=== PATIENT | male | born 1980 | race Caucasian/White ===

== ENCOUNTER 2018-07-07 12:25 | Day surgery (SDC) | payer MEDICAID ==
[~2018-07-07] VITALS: Ht 175.3 cm; Wt 111.4 kg
--- NOTE | ~2018-07-07 | OP ---
PATIENT NAME: ANGELIQUE WEINSTEIN MEDICAL RECORD: [id number] :81 LOCATION:[facility] ADMISSION DATE: SURGEON: STANFORD ZHANG MD DATE OF OPERATION: 07/07/2018 PROCEDURE: Colonoscopy with polypectomy. REFERRING PHYSICIAN: Dr. Moody Sierra. INDICATIONS: Mr. Weinstein is a delightful 38-year-old gentleman with a history of developmental cognitive delay, cerebral palsy, seizure disorder and bipolar disorder, who has had symptoms of constipation for several years, but has been worse over the past 4-5 months. His appetite is decreased and he has lost 9 pounds over the past 3 months. He has had no melena or hematochezia. He presents for an outpatient colonoscopy. PREMEDICATIONS: Total IV anesthesia (propofol 320 mg. Indications are cerebral palsy, seizure disorder, bipolar disorder). INSTRUMENT: Olympus video colonoscope pediatric. PROCEDURE AND FINDINGS: After receiving informed consent, Mr. Weinstein was placed in left lateral decubitus position, sedated as per anesthesia. After achieving adequate level of sedation, digital rectal exam was performed that showed no external hemorrhoidal tags, fissures or fistulas, normal sphincter tone, no palpable rectal masses. Colonoscope was introduced per rectally and advanced with mild difficulty to the cecum. He had a long and redundant colon. The cecum, IC valve, and appendiceal orifice were identified. Within the cecum was a 0.3 cm sessile polyp, removed with hot biopsy forcep technique. In the proximal ascending colon was a 0.3 cm sessile polyp, removed with hot biopsy forceps technique. Overall the colonic mucosa had normal vascular and fold pattern. No other polyps were seen in the colon. Fair to good prep was present. Retroflexion in the rectum showed no significant internal hemorrhoids. Withdrawal time was 8 minutes. Mr. Weinstein tolerated the procedure well, no immediate complications. ASSESSMENT: 1. Small cecal polyp, status post polypectomy. 2. Small proximal ascending colon polyp, status post polypectomy. 3. Inanition and weight loss. 4. Chronic constipation. RECOMMENDATIONS: 1. Encourage free water intake. 2. Recommend MiraLax twice a day, Colace 200 mg 3 times a day and milk of magnesia every 2-3 days as needed. 3. Follow up histopathology. 4. Avoid aspirin, nonsteroidal anti-inflammatory drugs and BYRNE-2 inhibitors 14 days post polypectomy. 5. High fiber diet. 6. Also consider adding daily Benefiber to his bowel regimen. 7. Recommend EGD to rule out upper GI etiology for his weight loss and loss of appetite. TRANSINT:[id number] Voice Confirmation ID: [id number] DOCUMENT ID: [id number] OPERATIVE REPORT [id number] ANGELIQUE WEINSTEIN TERRI MD CC: ELLA SIERRA MD [id number] DICTATION DATE: 07/07/18 1439 SHIPPING ORDER CLERK: 07/07/18 1505 [address] [place] [id number] [place] [id number]
[2018-07-07] MEDS ORDERED: DEPAKOTE500 MG PO (12:44)
[2018-07-07] MEDS ORDERED: LAMICTAL100 MG PO (12:45)
[2018-07-07] MEDS ORDERED: NEURONTIN800 MG PO (12:45)
[2018-07-07] MEDS ORDERED: KEPPRA500 MG PO (12:45)
[2018-07-07] MEDS ORDERED: SEROQUEL XR300 MG PO (12:45)
[2018-07-07] MEDS ORDERED: LEVOTHYROXINE50 MCG PO (12:45)
[2018-07-07] MEDS ORDERED: MIRALAX17 GM PO (12:46)
[2018-07-07] MEDS ORDERED: CLARITIN 10 MG10 MG PO (12:46)
[2018-07-07] MEDS ORDERED: FLUTICASONE PRO16 GM NASAL (12:46)
[2018-07-07] MEDS ORDERED: METAMUCIL PACKE1 PKT PO (12:47)
[2018-07-07 12:53] VITALS: BP 141/86; Ht 175.3 cm; Wt 111.4 kg
== END 2018-07-07 15:32 | disposition home or self-care (01) ==
LOC: D.OPS 12:25
DX: R63.4 Abnormal weight loss (principal); R19.4 Change in bowel habit; K63.5 Polyp of colon

== ENCOUNTER 2019-02-04 12:08 | Emergency (ER) | payer OTHER ==
[~2019-02-04] VITALS: Ht 175.3 cm; Wt 113.6 kg
[~2019-02-04 12:08] MED LIST: CLARITIN 10 MG10 MG PO; DEPAKOTE500 MG PO; FLUTICASONE PRO16 GM NASAL; KEPPRA500 MG PO; LAMICTAL100 MG PO; LEVOTHYROXINE50 MCG PO; METAMUCIL PACKE1 PKT PO; MIRALAX17 GM PO; NEURONTIN800 MG PO; SEROQUEL XR300 MG PO
[2019-02-04 12:23] VITALS: Ht 175.3 cm; Wt 113.6 kg
[2019-02-04] MEDS ORDERED: TORADOL10 MG PO (15:25)
[2019-02-04 15:58] VITALS: BP 136/78
== END 2019-02-04 15:58 | disposition home or self-care (01) ==
LOC: D.ER 12:08
DX: M25.572 Pain in left ankle and joints of left foot (principal); M25.562 Pain in left knee; M79.672 Pain in left foot; W19.XXXA Unspecified fall, initial encounter

== ENCOUNTER 2019-06-30 05:58 | Day surgery (SDC) | payer OTHER ==
[2019-02-04 12:23] VITALS: BMI 37.0
[~2019-06-30 05:58] MED LIST changes: +TORADOL10 MG PO
[2019-06-30 06:24] LABS: HEMATOCRIT 42.7 % (42.0-54.0); HEMOGLOBIN 14.7 g/dL (13.5-17.5); MCH 31.3 pg (26.0-34.0); MCHC 34.4 g/dL (31.0-37.0); MEAN PLATELET VOLUME 10.7 fL (7.4-10.4); RBC 4.69 10x6/uL (4.20-6.10); RDW 14.5 % (11.5-14.5); WBC 6.5 10x3/uL (4.8-10.8)
--- NOTE | 2019-06-30 09:31 | NUR ---
DC INSTRUCTIONS GIVEN TO PT/FAMILY. STATE UNDERSTANDING. DC'D IV CATH FULLY INTACT.
--- NOTE | 2019-06-30 09:41 | NUR ---
PT LEFT UNIT VIA AT 1256
--- NOTE | 2019-06-30 16:30 | OP ---
PATIENT NAME: ANGELIQUE WEINSTEIN MEDICAL RECORD: [id number] :81 [facility] DATE: SURGEON: REDD MCCLELLAN DO DATE OF OPERATION: 06/30/2019 PROCEDURE: Colonoscopy with polypectomy. INDICATIONS FOR PROCEDURE: Personal history of polyps, this is a 1-year recall. SCOPE: Nuiku video pediatric colonoscope. MEDICATIONS: Propofol 300 mg IV per anesthesia, Versed 2 mg IV, fentanyl 100 mcg IV, all per anesthesia. WITHDRAWAL TIME: 9 minutes. ESTIMATED BLOOD LOSS: Minimal. COMPLICATIONS: None. FINDINGS: Informed consent was given. The patient was made comfortable with the above medication. After reaching an adequate level of sedation by slow IV push, the patient was placed on his left side. A digital rectal examination was performed and it was normal. The endoscope was then advanced under direct visualization through the rectum to the cecum. There was some difficulty reaching the cecum with position changes and counter pressure utilized. The prep quality was good other than the ascending colon and cecum where only a brief view was given of the mucosa within the cecum. The endoscope was slowly withdrawn and the mucosa was carefully examined. There were 4 polyps visualized on today's examination. One was located in the ascending colon. It was benign appearing sessile polyp measuring approximately 4-5 mm in diameter. It was removed using hot snare. In the transverse colon, there were two separate benign-appearing sessile polyps, which ranged in size from 5-8 mm in diameter. They were both removed using hot snare. In the sigmoid colon, there was a single benign-appearing sessile polyp, which measured approximately 5 mm in diameter. It was removed using hot snare. Retroflexion was performed in the rectum with a normal appearing rectal wall. The endoscope was withdrawn from the patient. The patient tolerated the procedure well and there were no complications. IMPRESSION: 1. Four polyps as described above, removed using a hot snare. 2. Otherwise, normal colonoscopy. PLAN AND RECOMMENDATIONS: 1. Discharge home when recovery parameters are met. 2. Follow up biopsy specimen results. 3. High fiber diet. 4. Continue current medications. 5. Recall colonoscopy in 1-2 years. TRANSINT:[id number] Voice Confirmation ID: [id number] DOCUMENT ID: [id number] OPERATIVE REPORT [id number] ANGELIQUE WEINSTEIN REDD MCCLELLAN DO at 1630 CC: [id number] DICTATION DATE: 06/30/19 0901 AIRCRAFT CAPTAIN: 06/30/19 1106 [facility] 06/30/19 [facility] [address] [facility] [place] [address]
== END 2019-06-30 09:38 | disposition home or self-care (01) ==
LOC: D.OPS 05:58
PROVIDERS: Anesthesiology; ATTEND Internal Medicine Gastroenterology
DX: K63.5 Polyp of colon (principal); Z86.010 Personal history of colon polyps

== ENCOUNTER → 2019-07-26 08:25 | Outpatient (CLI) | payer OTHER ==
[2019-02-04 12:23] VITALS: BMI 37.0
[2019-07-26 11:03] LABS: BASOPHILS 0.3 % (0-2); EOSINOPHILS 1.5 % (0-7); HEMATOCRIT 42.8 % (42.0-54.0); IMMATURE GRANULOCYTES 0.6 % (0-5); LYMPHOCYTES 36.3 % (15-50); MCH 31.5 pg (26.0-34.0); MCHC 32.7 g/dL (31.0-37.0); MCV 96.4 fL (80.0-100.0); MEAN PLATELET VOLUME 10.3 fL (7.4-10.4); MONOCYTES 10.3 % (2-11); PLATELET COUNT 214 10x3/uL (130-400); RBC 4.44 10x6/uL (4.20-6.10); RDW 14.2 % (11.5-14.5); WBC 6.5 10x3/uL (4.8-10.8)
[2019-07-26 13:40] LABS: HELICOBACTER PYLORI IGG NEGATIVE (NEGATIVE)
== END | disposition home or self-care (01) ==
LOC: D.CT 08:25
PROVIDERS: ATTEND Internal Medicine Gastroenterology
DX: K92.1 Melena (principal); K59.00 Constipation, unspecified; R14.2 Eructation

== ENCOUNTER → 2019-07-27 07:32 | Outpatient (CLI) | payer OTHER ==
[2019-02-04 12:23] VITALS: BMI 37.0
== END | disposition home or self-care (01) ==
LOC: D.RAD 07:32
PROVIDERS: ATTEND Internal Medicine Gastroenterology
DX: K59.00 Constipation, unspecified (principal); K92.1 Melena